=== PATIENT | female | born 1980 | race Caucasian/White ===

== ENCOUNTER 2017-03-13 11:27 | Emergency (ER) | payer OTHER ==
[~2017-03-13 11:27] MED LIST: AMBIEN10 MG PO; AMOXIL500 MG PO; BACITRACIN30 GM TOP; BACTRIM DS TABL1 TAB PO; BENADRILINA25 MG PO; CERTAGEN PO; DENTAL BALL TOP; DOXYCYCLINE HY100 M1 PO; EPI PEN; FLAGYL PO; IBUPROFEN800 MG PO; KEFLEX PO; MACROBID 100 M100 MG PO; MEDROL DOSEPAK4 MG PO; METHADONE HCL10 MG PO; METHADONE PO; METRONIDAZOLE PO; MOTRIN600 M1 PO; MULTIVITAMIN1 UDCAP PO; NAPROXEN250 MG; NO MEDICATIONS; NORCO 5/325 TAB1 TAB PO; PEN-VEE K PO; POTASSIUM PO; PREDNISONE PO; PROZAC40 MG PO; XANAX1 MG PO; ZYRTEC10 M2 PO
== END 2017-03-13 11:58 | disposition home or self-care (01) ==
LOC: SED 11:27
DX: B34.9 Viral infection, unspecified (principal); J06.9 Acute upper respiratory infection, unspecified; F32.9 Major depressive disorder, single episode, unspecified; F41.9 Anxiety disorder, unspecified; F17.210 Nicotine dependence, cigarettes, uncomplicated
CPT/HCPCS: 87651; 99283

== ENCOUNTER 2017-04-06 12:47 | Emergency (ER) | payer OTHER ==
[2017-04-06] MEDS ORDERED: NO MEDICATIONS (12:53)
== END 2017-04-06 13:11 | disposition left against medical advice (07) ==
LOC: CED 12:47
DX: T40.1X1A Poisoning by heroin, accidental (unintentional), initial encounter (principal); F32.9 Major depressive disorder, single episode, unspecified; F41.9 Anxiety disorder, unspecified; F17.210 Nicotine dependence, cigarettes, uncomplicated; Y92.9 Unspecified place or not applicable
CPT/HCPCS: 99283